=== PATIENT | male | born 1960 | race Caucasian/White ===

== ENCOUNTER 2022-02-20 08:15 | Outpatient (RCR) | payer OTHER ==
[~2022-02-20 08:15] MED LIST: ALLEGRA 180MG180 MG PO; ASPIRIN 81M81 MG/TA2 PO; FISH OIL 1000MG1 CAP PO; NIACIN 100100 MG/TAB PO
== END 2022-02-26 | disposition home or self-care (01) ==
LOC: WSPT
DX: S46.011D Strain of muscle(s) and tendon(s) of the rotator cuff of right shoulder, subsequent encounter (principal); S66.011D Strain of long flexor muscle, fascia and tendon of right thumb at wrist and hand level, subsequent encounter; W01.0XXD Fall on same level from slipping, tripping and stumbling without subsequent striking against object, subsequent encounter